=== PATIENT | male | born 1960 | race Asian ===

== ENCOUNTER 2024-02-02 08:19 | Day surgery (SDC) | payer MEDICAID ==
[~2024-02-02] VITALS: Ht 157.5 cm; Wt 73.5 kg
[2024-02-02] MEDS ORDERED: MIDAZOLAM HCL 5 MG/5 ML VIAL ONE (08:47)
[2024-02-02] MEDS ORDERED: MEPERIDINE 100 MG INJ. 100 MG/ML VIAL ONE (08:47)
[2024-02-02 09:35] VITALS: O2SAT 98
[2024-02-02 15:24] VITALS: BP_SYST 107; PULSE 66; RESP 10
== END 2024-02-02 11:05 | disposition home or self-care (01) ==
LOC: SDS 08:19 → SMU 08:21 → SDS 11:05
PROVIDERS: ATTEND Internal Medicine Gastroenterology
DX: Z12.11 Encounter for screening for malignant neoplasm of colon (principal); D12.8 Benign neoplasm of rectum; D12.2 Benign neoplasm of ascending colon; K64.8 Other hemorrhoids; I10 Essential (primary) hypertension; E78.5 Hyperlipidemia, unspecified; Z91.011 Allergy to milk products; Z91.010 Allergy to peanuts; Z79.899 Other long term (current) drug therapy
CPT/HCPCS: 45385; 99152; 88305; 99153; G0378; J2250; J2175